=== PATIENT | male | born 1995 | race Caucasian/White ===

== ENCOUNTER 2019-06-26 14:35 | Emergency (ER) | payer OTHER ==
[~2019-06-26] VITALS: Ht 182 cm; Wt 115.9 kg
--- NOTE | 2019-06-26 14:39 | ED Dyspnea ---
General Stated Complaint: SOB Source of Information: Patient History of Present Illness Date Seen by Provider: Jun 26, 2019 Time Seen by Provider: 14:39 Initial Comments 23-year-old male presents with shortness of breath. Patient reports that he was playing rugby. That he'll do chest tightness and shortness of air why he was playing. He did afterwords he got severely worse for us of breath. Patient reports he's had a little bit of a cold that he developed yesterday with a cough. Patient does not have any chest pain. Has no history of asthma or other respiratory issues. Patient does not have any cardiac history. Patient he possib ly could be having a panic attack because he is have one in the past. Allergies and Home Medications Allergies Coded Allergies: No Known Drug Allergies (Unverified , 06/26/19) Patient Home Medication List Home Medication List Reviewed: Yes Review of Systems Review of Systems Constitutional: No chills, No fever EENTM: see HPI Respiratory: see HPI Cardiovascular: see HPI Genitourinary: no symptoms reported Musculoskeletal: no symptoms reported Skin: no symptoms reported Past Gufwcru-Hbipxg-Bytvfa Hx Past Med/Social Hx: Reviewed Nursing Past Med/Soc Hx Physical Exam Vital Signs Vital Signs - First Documented 06/26/19 14:36 Temp 36.6 Pulse 124 Resp 24 B/P (MAP) 127/81 (96) Pulse Ox 100 O2 Delivery Room Air Capillary Refill : Height, Weight, BMI Height: '" Weight: lbs. oz. kg; BMI Method: General Appearance: Anxious HEENT: TMs Normal, Normal ENT Inspection Neck: Normal Inspection, Non Tender Respiratory: Chest Non Tender, Lungs Clear, Normal Breath Sounds Cardiovascular: Regular Rate, Rhythm, No Edema Gastrointestinal: Non Tender, Soft Extremity: Normal Capillary Refill, Normal Range of Motion Neurologic/Psychiatric: Alert, Oriented x3, director music II-XII Norm as Tested Skin: Normal Color, Warm/Dry Progress/Results/Core Measures Results/Orders Lab Results Laboratory Tests Test 06/26/19 14:44 Range/Units White Blood Count 9.2 4.3-11.0 10^3/uL Red Blood Count 5.21 4.35-5.85 10^6/uL Hemoglobin 15.1 13.3-17.7 G/DL Hematocrit 43 40-54 % Mean Corpuscular Volume 83 80-99 FL Mean Corpuscular Hemoglobin 29 25-34 PG Mean Corpuscular Hemoglobin Concent 35 32-36 G/DL Red Cell Distribution Width 12.6 10.0-14.5 % Platelet Count 322 130-400 10^3/uL Mean Platelet Volume 10.1 7.4-10.4 FL Neutrophils (%) (Auto) 82 H 42-75 % Lymphocytes (%) (Auto) 13 12-44 % Monocytes (%) (Auto) 6 0-12 % Eosinophils (%) (Auto) 0 0-10 % Basophils (%) (Auto) 0 0-10 % Neutrophils # (Auto) 7.5 1.8-7.8 X 10^3 Lymphocytes # (Auto) 1.2 1.0-4.0 X 10^3 Monocytes # (Auto) 0.5 0.0-1.0 X 10^3 Eosinophils # (Auto) 0.0 0.0-0.3 10^3/uL Basophils # (Auto) 0.0 0.0-0.1 10^3/uL D-Dimer 0.38 0.00-0.49 UG/ML Sodium Level 141 135-145 MMOL/L Potassium Level 3.8 3.6-5.0 MMOL/L Chloride Level 105 98-107 MMOL/L Carbon Dioxide Level 23 21-32 MMOL/L Anion Gap 13 5-14 MMOL/L Blood Urea Nitrogen 16 7-18 MG/DL Creatinine 1.63 H 0.60-1.30 MG/DL Estimat Glomerular Filtration Rate 52 BUN/Creatinine Ratio 10 Glucose Level 95 70-105 MG/DL Calcium Level 9.9 8.5-10.1 MG/DL B-Type Natriuretic Peptide < 10.0 <100.0 PG/ML Micro Results Microbiology 06/26/19 Influenza Types A,B Antigen (ENRIQUE) - Final, Complete My Orders Orders - TELLEZ,KEREN L DO Chest Pa/Lat (2 View) (06/26/19 14:39) Ekg Tracing (06/26/19 14:39) Monitor-Rhythm Ecg Trace Only (06/26/19 14:39) Basic Metabolic Panel (06/26/19 14:39) BNP (06/26/19 14:39) Cbc With Automated Diff (06/26/19 14:39) Fibrin Degradation Products (06/26/19 14:39) Influenza A And B Antigens (06/26/19 14:39) Vital Signs/I&O 06/26/19 14:36 Temp 36.6 Pulse 124 Resp 24 B/P (MAP) 127/81 (96) Pulse Ox 100 O2 Delivery Room Air Progress Progress Note : Time: 15:48 Progress Note patient had an episode in which he was again got very anxious and started to hyperventilate. Was given a mask which he breathed into an symptoms significantly improved. Patient with negative workup. Patient symptoms were consistent consistent with an anxiety type reaction. I did recommend that if he starts having these more frequently or has again and he follows up with his primary care provider for further evaluation and further testing to check for thyroid or other endocrine-type issues. I also recommended he drink plenty of fluids, watch any caffeine, supplements or energy drink intake. Patient is stable with no symptoms upon discharge. Initial ECG Impression Date: Jun 26, 2019 Initial ECG Impression Time: 14:45 Initial ECG Rate: 94 Initial ECG Rhythm: Normal Sinus Initial ECG Intervals: Normal Initial ECG Impression: Normal Diagnostic Imaging Diagonstic Imaging: Xray Plain Films/CT/US/NM/MRI: abdomen Comments NAME: CRISTA BURK [facility] REC#: [id number] PT STATUS: REG ER : 1995 PHYSICIAN: KEREN TELLEZ DO ADMIT DATE: 06/26/19/ER Draft Date of Exam:06/26/19 CHEST PA/LAT (2 VIEW) Clinical indication: Patient played rugby today and denies injury. Patient with shortness of breath and feels anxious and chest tightness. Exam: Chest x-ray PA and lateral views. Comparisons: None. Findings: Lungs/pleura: Lungs are clear. There is no pneumothorax. There is no pleural effusion. Mediastinum: Unremarkable. Pulmonary vasculature: Unremarkable. Heart: Unremarkable. Bones/extrathoracic soft tissue: Unremarkable. Impression: There is no radiographic evidence of acute cardiopulmonary process. Departure Impression Primary Impression: Stress reaction Disposition: 01 HOME, SELF-CARE Condition: Stable Departure-Patient Inst. Patient Instructions: Anxiety, Adult (DC), Stress Add. Discharge Instructions: Emergency department focuses on treating and ruling out life-threatening disease s. Whenever possible, a diagnosis is given. However, most patients are given an impression based on their history, physical exam, and workup during your brief time in the ER. Information about probable diagnosis and other educational material has been provided. Please take the time to read and understand this information. It is very important that you follow up with a physician as discussed during the visit today. Failure to adhere to your follow-up instructions may lead to severe disability, injury, or so please make sure to keep your appointments or obtain one as requested. Please keep in mind the emergency department is not designed to your primary care or "family doctor" and nonurgent issues are best evaluated by an outpatient physician KEREN TELLEZ DO Jun 26, 2019 14:39
[2019-06-26 15:16] LABS: BASOPHILS % (AUTO) 0 % (0-10); EOSINOPHILS % (AUTO) 0 % (0-10); HEMATOCRIT 43 % (40-54); HEMOGLOBIN 15.1 G/DL (13.3-17.7); LYMPHOCYTES # (AUTO) 1.2 X 10^3 (1.0-4.0); LYMPHOCYTES % (AUTO) 13 % (12-44); MEAN CORPUSCULAR HEMOGLOBIN 29 PG (25-34); MEAN CORPUSCULAR HGB CONC 35 G/DL (32-36); MEAN CORPUSCULAR VOLUME 83 FL (80-99); MEAN PLATELET VOLUME 10.1 FL (7.4-10.4); MONOCYTES # (AUTO) 0.5 X 10^3 (0.0-1.0); MONOCYTES % (AUTO) 6 % (0-12); NEUTROPHILS # (AUTO) 7.5 X 10^3 (1.8-7.8); NEUTROPHILS % (AUTO) 82 % (42-75); PLATELET COUNT 322 10^3/uL (130-400); RED CELL DISTRIBUTION WIDTH 12.6 % (10.0-14.5); WHITE BLOOD COUNT 9.2 10^3/uL (4.3-11.0)
--- NOTE | 2019-06-26 15:24 | NUR ---
PT BACK FROM RADIOLOGY
[2019-06-26 15:36] LABS: CALCIUM 9.9 MG/DL (8.5-10.1); CREATININE SERUM 1.63 MG/DL (0.60-1.30); POTASSIUM 3.8 MMOL/L (3.6-5.0)
--- NOTE | 2019-06-26 15:36 | Diagnostic Imaging Report ---
Clinical indication: Patient played rugby today and denies injury. Patient with shortness of breath and feels anxious and chest tightness. Exam: Chest x-ray PA and lateral views. Comparisons: None. Findings: Lungs/pleura: Lungs are clear. There is no pneumothorax. There is no pleural effusion. Mediastinum: Unremarkable. Pulmonary vasculature: Unremarkable. Heart: Unremarkable. Bones/extrathoracic soft tissue: Unremarkable. Impression: There is no radiographic evidence of acute cardiopulmonary process. Dictated by: Dictated on workstation # [id number]
[2019-06-26 15:56] VITALS: BP 127/85
--- NOTE | 2019-06-26 15:56 | NUR ---
PT DISCHARGED TO HOME W/ INSTR. PT TO F/U W/ PCP ET RETURN IF SYMPTOMS CHANGE OR GET WORSE. UNDERSTANDING VOICED.
== END 2019-06-26 15:56 | disposition home or self-care (01) ==
LOC: ER 14:37
DX: F43.9 Reaction to severe stress, unspecified (principal)
CPT/HCPCS: 36415; 71046; 80048; 83880; 85025; 85379; 87804; 93005